=== PATIENT | female | born 1955 | race Caucasian/White ===

== ENCOUNTER 2021-07-18 11:55 | Outpatient (CLI) | payer BC, SELFPAY ==
[2021-07-18 12:31] LABS: Basophils Absolute Auto 0.1 K/mm3 (0.0-0.1); Basophils Percent Auto 1.4 % (0.2-1.2); Eosinophils Absolute Auto 0.3 K/mm3 (0-0.3); Eosinophils Percent Auto 4.4 % (0-4.4); Hematocrit 38.4 % (37.0-47.0); Hemoglobin 12.5 g/dL (12.0-15.0); Immature Granulocyte Absolute 0.02 K/mm3 (0.00-0.031); Immature Granulocyte Percent A 0.3 % (0-0.5); Lymphocytes Absolute Auto 2.41 K/mm3 (0.9-3.2); Lymphocytes Percent Auto 36.2 % (18.3-44.2); Mean Corpuscular HGB Conc 32.6 g/dl (32-36); Mean Corpuscular Hemoglobin 29.3 pg (26-34); Mean Corpuscular Volume 90.1 fl (80-100); Mean Platelet Volume 9.2 fl (7.4-10.4); Monocytes Absolute Auto 0.4 K/mm3 (0.1-0.6); Monocytes Percent Auto 6.5 % (2.6-8.5); Neutrophils Absolute Auto 3.4 K/mm3 (1.3-6.7); Neutrophils Percent Auto 51.2 % (45.5-73.1); Platelet Count Result 266 k/mm3 (150-375); Red Blood Count 4.26 M/mm3 (4.2-5.4); White Blood Count 6.7 K/mm3 (4.5-10.0)
[2021-07-18 15:37] LABS: Alanine Aminotransferase 22 U/L (4-35); Albumin Level 4.2 g/dL (3.5-5.1); Alkaline Phosphatase 104 U/L (38-126); Anion Gap 9 mmol/L (8-16); Aspartate Amino Transferase 42 U/L (14-36); Bilirubin,Total 0.5 mg/dL (0.2-1.3); Blood Urea Nitrogen 14 mg/dL (7-17); Calcium 9.4 mg/dL (8.4-10.2); Carbon Dioxide 22 mmol/L (22-30); Chloride 107 mmol/L (98-107); Estimated Glomerular Filt Rate > 60; Glucose 106 mg/dL (65-110); Potassium 3.9 mmol/L (3.4-5.0); Sodium 138 mmol/L (137-145)
[2021-07-18 15:59] LABS: Iron 107 ug/dL (37-170)
[2021-07-18 16:12] LABS: Percent Iron Saturation 28 % (20-50)
== END 2021-07-18 11:56 | disposition home or self-care (01) ==
PROVIDERS: Visit Provider Internal Medicine Hematology & Oncology
DX: D64.9 Anemia, unspecified (principal)
CPT/HCPCS: 36415; 80053; 82607; 82728; 83540; 83550; 85025

== ENCOUNTER 2021-07-21 08:35 | Outpatient (CLI) | payer BC, SELFPAY ==
--- NOTE | ~2021-07-21 | CT_ITS ---
EXAMINATION: CTA chest PE protocol DATE: 07/21/2021 09:05 INDICATION: Dyspnea TECHNIQUE: Computed tomography (CT) pulmonary angiogram of the chest was performed with 100 mL Omnipa que-350 intravenous contrast. Additional 3D reconstructions utilizing coronal maximum intensity proje ction (MIP) were performed. Automated exposure control and iterative reconstruction technique were em ployed. The dose-length product was 1021.33 mGy-cm. COMPARISON: None FINDINGS: Good contrast opacification of the pulmonary arteries. There is mild moderate streak artifact from de nse contrast in the superior vena cava and right atrium. Mild scattered respiratory motion artifact. Together this mildly decreases sensitivity in some of the smaller subsegmental pulmonary arteries. Th ere is a thin linear filling defect extending from the right lower lobar pulmonary artery distal to t he takeoff of the superior segmental branch which extends into the pulmonary artery subsequently divi de into the anterior and lateral segments consistent with pulmonary embolism. The thin weblike appear ance suggests this may be a chronic. No other pulmonary emboli identified. Tiny posterior layering ri ght pleural effusion with mild dependent atelectasis in the right lower lobe. Additional mild peter sive atelectasis at the anterobasilar left lower lobe along side a large sliding-type hiatal hernia. No pneumonia, pulmonary edema or pneumothorax. Small calcified right upper lobe nodule consistent wit h old granulomatous disease. Mild cardiomegaly. Mild scattered atherosclerotic coronary artery calcif ic location. No pericardial effusion. Thoracic aorta is normal in caliber with no dissection. No path ologically enlarged thoracic lymphadenopathy. Diffuse hepatic steatosis. 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 Mild thoracic and upper lumbar spondylosis. IMPRESSION: 1. Linear weblike filling defect in the right lower lobar pulmonary artery consistent with pulmonary embolism which could be either acute or chronic. 2. Cardiomegaly. 3. Tiny right pleural effusion. 4. Large sliding-type hiatal hernia. 5. Porcelain gallbladder with mural calcification. 6. Diffuse hepatic steatosis. Reviewed, dictated and finalized at location A. IMPRESSION: 1. Linear weblike filling defect in the right lower lobar pulmonary artery cons istent with pulmonary embolism which could be either acute or chronic. 2. Cardiomegaly. 3. Tiny right pleural effusion. 4. Large sliding-type hiatal hernia. 5. Porcelain gallbladder with mural calcification. 6. Diffuse hepatic steatosis.
== END 2021-07-21 08:36 | disposition home or self-care (01) ==
PROVIDERS: PCP Internal Medicine Gastroenterology; Visit Provider Internal Medicine Hematology & Oncology
DX: R06.00 Dyspnea, unspecified (principal); I51.7 Cardiomegaly; K44.9 Diaphragmatic hernia without obstruction or gangrene; K76.0 Fatty (change of) liver, not elsewhere classified
CPT/HCPCS: 71275; Q9967